=== PATIENT | male | born 2000 | race Hispanic/Latino ===

== ENCOUNTER 2021-06-23 20:26 | Emergency (ER) | payer BC ==
[~2021-06-23] VITALS: Ht 172.7 cm; Wt 52.2 kg
[2021-06-23] MEDS ORDERED: ONDANSETRON ODT4 MG PO (20:56)
== END 2021-06-23 21:30 | disposition home or self-care (01) ==
LOC: ER 20:33
DX: R11.0 Nausea (principal); F41.9 Anxiety disorder, unspecified
CPT/HCPCS: 99282